=== PATIENT | male | born 1935 | race Caucasian/White ===

== ENCOUNTER 2020-10-25 17:16 | Inpatient (IN) | payer MEDICAID, SELFPAY ==
[~2020-10-25] VITALS: Ht 165.1 cm; Wt 64.4 kg
[2020-10-25 18:00] VITALS: Ht 165.1 cm; Wt 64.4 kg
[2020-10-25 22:03] LABS: BASOPHIL % 0.2 % (0.2-1.5); PLATELET COUNT 133 x10^3mcL (152-348); RED CELL DISTRIBUTION WIDTH 13.7 % (12.1-16.2)
[2020-10-25 22:13] LABS: CALCIUM 8.2 mg/dL (8.5-10.1); CARBON DIOXIDE 20.7 mmol/L (21-32); CHLORIDE SERUM 101 mmol/L (98-107); CREATININE SERUM 1.9 mg/dL (0.7-1.3); GLUCOSE SERUM 110 mg/dL (74-106); POTASSIUM SERUM 4.3 mmol/L (3.5-5.1); SODIUM SERUM 136 mmol/L (136-145)
[2020-10-25 22:17] LABS: ALBUMIN 3.6 g/dL (3.4-5.0); ALKALINE PHOSPHATASE 201 U/L (46-116); ALT/SGPT 43 U/L (16-63); AST/SGOT 50 U/L (15-37); BILIRUBIN TOTAL 0.9 mg/dL (0.20-1.00); LACTIC DEHYDROGENASE (LDH) 208 U/L (100-190); TOTAL PROTEIN, SERUM 7.5 g/dL (6.4-8.2)
[2020-10-25 22:47] LABS: C REACTIVE PROTEIN 13.2 mg/dL (<=0.9)
[2020-10-25 22:50] LABS: rbc morphology (normal/abnorm) NORMAL (NORMAL)
[2020-10-26] VITALS (7 sets, daily range): BP systolic 115–156; BP diastolic 73–90
[2020-10-26 04:49] LABS: UA SPECIFIC GRAVITY >=1.030 (1.005-1.035); microscopic required? YES; urine erythrocyte 2+ (NEGATIVE)
[2020-10-26 04:59] LABS: AMPHETAMINE QUAL UR NONE DETECTED (See below)
[2020-10-26 05:27] LABS: MAGNESIUM 2.1 mg/dL (1.8-2.4); PHOSPHOROUS 4.5 mg/dL (2.5-4.9); T3 TOTAL 0.87 ng/mL
[2020-10-26 05:35] LABS: FREE T4 1.04 ng/dL (0.76-1.46); FREE THYROXINE INDEX 2.5 ug/dL (1.4-4.5); T4(THYROXINE) 8.9 ug/dL (4.7-13.3)
[2020-10-26 07:30] LABS: BASOPHIL % 0.4 % (0.2-1.5); RED CELL DISTRIBUTION WIDTH 13.5 % (12.1-16.2)
[2020-10-26 07:59] LABS: ALKALINE PHOSPHATASE 173 U/L (46-116); ALT/SGPT 43 U/L (16-63); AST/SGOT 45 U/L (15-37); BILIRUBIN TOTAL 0.62 mg/dL (0.20-1.00); CARBON DIOXIDE 24.1 mmol/L (21-32); CHLORIDE SERUM 106 mmol/L (98-107); CREATININE SERUM 1.7 mg/dL (0.7-1.3); GLUCOSE SERUM 131 mg/dL (74-106); POTASSIUM SERUM 4.5 mmol/L (3.5-5.1); SODIUM SERUM 137 mmol/L (136-145); TOTAL PROTEIN, SERUM 6.7 g/dL (6.4-8.2)
[2020-10-26 08:14] LABS: PLATELET COUNT 114 x10^3mcL (152-348)
[2020-10-27 06:13] VITALS: BP 154/85
[2020-10-27 08:56] VITALS: BP 121/82
[2020-10-27 09:16] LABS: BASOPHIL % 0.2 % (0.2-1.5); RED CELL DISTRIBUTION WIDTH 13.5 % (12.1-16.2)
[2020-10-27 10:08] LABS: ALBUMIN 3.4 g/dL (3.4-5.0); ALKALINE PHOSPHATASE 175 U/L (46-116); ALT/SGPT 47 U/L (16-63); AST/SGOT 58 U/L (15-37); BILIRUBIN TOTAL 0.63 mg/dL (0.20-1.00); CALCIUM 8.8 mg/dL (8.5-10.1); CARBON DIOXIDE 24.7 mmol/L (21-32); CHLORIDE SERUM 104 mmol/L (98-107); CREATININE SERUM 1.1 mg/dL (0.7-1.3); GLUCOSE SERUM 92 mg/dL (74-106); POTASSIUM SERUM 5.1 mmol/L (3.5-5.1); SODIUM SERUM 142 mmol/L (136-145); TOTAL PROTEIN, SERUM 7.4 g/dL (6.4-8.2)
[2020-10-27 10:39] LABS: PLATELET COUNT 117 x10^3mcL (152-348)
[2020-10-27 10:40] LABS: rbc morphology (normal/abnorm) NORMAL (NORMAL)
[2020-10-27 11:46] VITALS: BP 121/82
[2020-10-27] MEDS ORDERED: LIDODERM51 TOP (12:27)
[2020-10-27 12:35] VITALS: BP 131/63
== END 2020-10-27 15:36 | disposition home or self-care (01) | DRG 720 ==
LOC: ED 17:16 → DU 23:52
PROVIDERS: Student in an Organized Health Care Education/Training Program; ADMIT Family Medicine; ATTEND Family Medicine
DX: A41.89 Other specified sepsis (principal); U07.1 COVID-19; N17.0 Acute kidney failure with tubular necrosis; E83.51 Hypocalcemia; D69.6 Thrombocytopenia, unspecified; I11.0 Hypertensive heart disease with heart failure; I50.9 Heart failure, unspecified; N39.0 Urinary tract infection, site not specified; M25.561 Pain in right knee; J12.89 Other viral pneumonia; Z79.899 Other long term (current) drug therapy
CPT/HCPCS: 36600; 83880; 84439; 85378; 87804; 97116-GP; 97530-GP; G0378; J0456; J0696; J1100; J1644; J3535; J7030; J7050; J7060; U0003

== ENCOUNTER 2020-10-31 14:12 | Emergency (ER) | payer MEDICAID, SELFPAY ==
[~2020-10-31] VITALS: Ht 170.2 cm; Wt 72.6 kg
[~2020-10-31 14:12] MED LIST: LIDODERM51 TOP
[2020-10-31 14:14] VITALS: Ht 170.2 cm; Wt 72.6 kg
[2020-10-31 16:02] LABS: RED CELL DISTRIBUTION WIDTH 13.5 % (12.1-16.2)
[2020-10-31 16:04] LABS: PLATELET COUNT 181 x10^3mcL (152-348)
[2020-10-31 16:42] LABS: CALCIUM 7.8 mg/dL (8.5-10.1); CARBON DIOXIDE 23.3 mmol/L (21-32); CHLORIDE SERUM 100 mmol/L (98-107); CREATININE SERUM 1.1 mg/dL (0.7-1.3); GLUCOSE SERUM 105 mg/dL (74-106); POTASSIUM SERUM 3.8 mmol/L (3.5-5.1); SODIUM SERUM 135 mmol/L (136-145)
[2020-10-31 16:47] LABS: ALKALINE PHOSPHATASE 299 U/L (46-116); ALT/SGPT 67 U/L (16-63); AST/SGOT 88 U/L (15-37); BILIRUBIN TOTAL 0.8 mg/dL (0.20-1.00); LACTIC DEHYDROGENASE (LDH) 267 U/L (100-190); TOTAL PROTEIN, SERUM 6.8 g/dL (6.4-8.2)
[2020-10-31 16:48] LABS: ALBUMIN 2.8 g/dL (3.4-5.0)
[2020-10-31 17:32] LABS: BAND NEUTROPHIL 1 % (0-10); BASOPHIL 0 % (0-2); METAMYELOCTE 1 % (0-2); MONOCYTE 7 % (0-7); SEGMENTED NEUTROPHILS 80 % (37-75)
[2020-10-31 17:33] LABS: rbc morphology (normal/abnorm) NORMAL (NORMAL)
[2020-10-31 18:16] VITALS: BP 119/72
[2020-11-04] MEDS ORDERED: V2 (06:19)
[2020-11-05] MEDS ORDERED: VITC PO ×2 (09:21→13:48)
[2020-11-05] MEDS ORDERED: ZITHROMAX TRI-500 MG PO ×2 (09:23→13:48)
[2020-11-05] MEDS ORDERED: LEVAQUIN500 M1 (11:51)
== END 2020-10-31 18:20 | disposition home or self-care (01) ==
LOC: ED 14:12
PROVIDERS: Emergency Medicine
DX: U07.1 COVID-19 (principal); J12.89 Other viral pneumonia; I10 Essential (primary) hypertension
CPT/HCPCS: 36600; 83880; 85378; 87804

== ENCOUNTER 2020-11-09 15:23 | Emergency (ER) | payer MEDICAID ==
[~2020-11-09] VITALS: Ht 162.6 cm; Wt 61.7 kg
[~2020-11-09 15:23] MED LIST changes: +LEVAQUIN500 M1; +V2; +VITC PO; +ZITHROMAX TRI-500 MG PO
[2020-11-09 15:25] VITALS: BP 153/90; Ht 162.6 cm; Wt 61.7 kg
== END 2020-11-09 17:45 | disposition home or self-care (01) ==
LOC: ED 15:23
DX: U07.1 COVID-19 (principal); I10 Essential (primary) hypertension